=== PATIENT | male | born 1950 | race Caucasian/White ===

== ENCOUNTER → 2019-12-09 | Outpatient (CLI) | payer MEDICARE, OTHER ==
[~2019-12-09] MED LIST: ACET-2744 PO; AQUAOINT TD; ASCO500 PO; CALC-895 PO; CLOP75TA3 PO; DIVA-78 PO; LEVO50TA4 PO; MEMA28CA PO; MUPI22O TD; NIZO215C TD; OXYB15TA PO; PRIM50 PO; VIT1CAPS49 PO; VITA1TAB22 PO; ZINC1CAP2 PO
== END | disposition home or self-care (01) ==
LOC: RADMN 10:51
PROVIDERS: ATTEND Registered Nurse
DX: R13.12 Dysphagia, oropharyngeal phase (principal)
CPT/HCPCS: 74230; 92611